=== PATIENT | male | born 1970 | race American Indian/Alaskan Native ===

== ENCOUNTER 2017-12-18 18:39 | Emergency (ER) | payer OTHER ==
[2017-12-18 19:47] VITALS: BP 133/94
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
[2017-12-18] MEDS ORDERED: BOOSTRIX IM ONE (22:26)
[2017-12-18] MEDS ORDERED: ULTRAM PO ONE (22:27)
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
[2017-12-18] MEDS ORDERED: NACL 0.9% IR ONE (22:44)
== END 2017-12-18 23:30 | disposition home or self-care (01) ==
LOC: ED 18:39
DX: S40.852A Superficial foreign body of left upper arm, initial encounter (principal); W45.8XXA Other foreign body or object entering through skin, initial encounter; Y93.89 Activity, other specified; Y92.89 Other specified places as the place of occurrence of the external cause; Y99.8 Other external cause status
CPT/HCPCS: 90471; 90715; 99283